=== PATIENT | female | born 1990 | race Caucasian/White ===

== ENCOUNTER 2021-07-17 12:13 | Outpatient (CLI) | payer OTHER, BC ==
[~2021-07-17] VITALS: Ht 170.2 cm; Wt 72.3 kg
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
--- NOTE | 2021-07-17 12:55 | NUR ---
Ctx noted on monitor. Pt reports feeling some tightening in the abdomen and some pain in the back. SVE done by this RN closed/thick/high. Information reviewed with Dr. Pyle. See physician notifications for details.
[2021-07-17 13:04] VITALS: BP 121/67; PULSE 94; TEMP 98.4
[2021-07-17] MEDS ORDERED: PRENATAL (13:10)
== END 2021-07-17 13:10 | disposition home or self-care (01) ==
LOC: LDRO 12:13
DX: Z34.93 Encounter for supervision of normal pregnancy, unspecified, third trimester (principal); Z3A.32 32 weeks gestation of pregnancy

== ENCOUNTER 2021-09-13 20:02 | Inpatient (IN) | payer BC ==
[~2021-09-13] VITALS: Ht 170.2 cm; Wt 76.5 kg
[~2021-09-13 20:02] MED LIST: PRENATAL
--- NOTE | 2021-09-13 21:11 | NUR ---
@2009 Patient srrived on the unit via ambulation with spouse and with no apparent sign of distress. Patient was placed on the monitor and SVE was 4/-1 bloody show. @2027 Dr. Campos was notified regarding SVE /-1 bloody show with contractions q3-4mins. Pt breathing through each contraction. Dr. Campos said to admit pt.
[2021-09-13 21:30] VITALS: BP 120/62; PULSE 65
[2021-09-13 21:50] LABS: BASO % 0.2 % (0.0-2.0); EOS # 0.1 K/mm3 (0.0-0.7); EOS % 0.5 % (0.0-4.0); GRAN # 8.6 K/mm3 (1.4-6.5); GRAN % 76.2 % (42.2-75.2); HEMATOCRIT 33.4 % (37.0-47.0); LYMPH # 1.8 K/mm3 (1.2-3.4); LYMPH % 15.8 % (20.0-51.0); MEAN CELL VOLUME 92 fl (80.0-100.0); MEAN CORPUSCULAR HEMOGLOBIN 30 pg (27-31); MEAN CORPUSCULAR HGB CONC 33 g/dl (33.0-37.0); MEAN PLATELET VOLUME 12.8 fl (7.4-10.4); MONO # 0.8 K/mm3 (0.1-0.6); MONO % 6.9 % (1.7-9.3); PLATELET COUNT 152 K/mm3 (130-400); RED BLOOD COUNT 3.65 M/mm3 (4.10-5.30); REDCELL DISTRIBUTION WIDTH-CV 12.3 % (11.5-14.5)
[2021-09-13 22:00] VITALS: BP 126/76; PULSE 79; TEMP 98.1
[2021-09-13 23:30] VITALS: BP 125/77
--- NOTE | 2021-09-13 23:54 | NUR ---
@4092 TC CASTAÑEDA NOTOFIED FOR EPIDURAL. TC STATES SHE'S ON HER WAY.
[2021-09-14] VITALS (27 sets, daily range): BP systolic 104–155; BP diastolic 53–85; PULSE 59–103; TEMP 97.4–98.2
--- NOTE | 2021-09-14 00:31 | NUR ---
@2320 LR 1,000 BOLUS STARTED FOR EPIDURAL.
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
[2021-09-15 08:42] VITALS: BP 111/61; PULSE 68; TEMP 98
[2021-09-15] MEDS ORDERED: IBU800 M1 PO (09:32)
[2021-09-15 17:35] VITALS: BP 113/57; PULSE 63; TEMP 97.5
[2021-09-15 20:00] VITALS: BP 111/65; PULSE 72; TEMP 97.9
[2021-09-16 08:15] VITALS: BP 109/60; PULSE 62; TEMP 98.2
--- NOTE | 2021-09-16 12:23 | NUR ---
1200-PT DISCHARGED FROM L&D UNIT IN STABLE CONDITION WITH NO COMPLAINTS. PT AMBULATORY. DISCHRGE INSTRUCTIONS AND HEALTH SUMMARY EXPLAINED TO PT. PT VERBALIZED UNDERSTANDING.
== END 2021-09-16 12:00 | disposition home or self-care (01) | DRG 807 ==
LOC: LDRO 20:02 → LDR 20:23 → LDRO 21:07 → LDR 21:08 → OB 21:08
PROVIDERS: ADMIT Obstetrics & Gynecology
PROC: 10E0XZZ Delivery of Products of Conception, External Approach (ICD-10-PCS; principal; 2021-09-13)
PROC: 0KQM0ZZ Repair Perineum Muscle, Open Approach (ICD-10-PCS; 2021-09-13)
DX: O48.0 Post-term pregnancy (principal); Z37.0 Single live birth; O70.1 Second degree perineal laceration during delivery; Z3A.40 40 weeks gestation of pregnancy
CPT/HCPCS: J2590; J3010; J7120